=== PATIENT | male | born 1975 | race African-American/Black ===

== ENCOUNTER 2022-09-24 23:58 | Outpatient (CLI) | payer SELFPAY | END 2022-09-24 23:59 | disposition home or self-care (01) | LOC: AMB 10-16 12:37 | PROVIDERS: Visit Provider Family Medicine | DX: S01.81XA Laceration without foreign body of other part of head, initial encounter (principal); V49.40XA Driver injured in collision with unspecified motor vehicles in traffic accident, initial encounter; Y92.411 Interstate highway as the place of occurrence of the external cause | CPT/HCPCS: A0998 ==